=== PATIENT | male | born 1990 | race African-American/Black ===

== ENCOUNTER 2020-07-09 03:23 | Emergency (ER) | payer SELFPAY ==
[~2020-07-09] VITALS: Ht 182.9 cm; Wt 126.5 kg
[~2020-07-09 03:23] MED LIST: AMLO-150 PO; ATOR40TA78 PO; CARV12.5 PO; INSU100I11 SQ-INSULIN; INSU100I13 SQ-INSULIN; LISI-167 PO
[2020-07-09 03:25] VITALS: BP 202/126
--- NOTE | 2020-07-09 03:35 | NUR ---
PT ambulated to room. good aeration and oxygenation, sitting up in bed, and MD to bedside to eval pt.
== END 2020-07-09 04:06 | disposition home or self-care (01) ==
LOC: ED 03:33
DX: K04.6 Periapical abscess with sinus (principal); K02.9 Dental caries, unspecified; K08.89 Other specified disorders of teeth and supporting structures; I10 Essential (primary) hypertension; I25.2 Old myocardial infarction; F17.210 Nicotine dependence, cigarettes, uncomplicated
CPT/HCPCS: 99283; 99406